=== PATIENT | female | born 1980 | race Hispanic/Latino ===

== ENCOUNTER 2019-04-10 09:09 | Outpatient (CLI) | payer OTHER | END 2019-04-10 09:10 | disposition home or self-care (01) | LOC: LABHHL 09:09 | PROVIDERS: ATTEND Surgery | DX: N62 Hypertrophy of breast (principal) | CPT/HCPCS: 88305 ==

== ENCOUNTER 2019-05-13 06:21 | Day surgery (SDC) | payer OTHER ==
[~2019-05-13 06:21] MED LIST: ANCEF/STERILE WATER 2 GM/20 ML IV NR
[2019-05-13] MEDS ORDERED: DILAUDID IV PRN (07:07)
[2019-05-13] MEDS ORDERED: SUBLIMAZE IV NR (07:07)
[2019-05-13] MEDS ORDERED: ZOFRAN IV PRN (07:07)
[2019-05-13] MEDS ORDERED: SUBLIMAZE IV PRN (07:07)
--- NOTE | 2019-05-13 07:13 | Anesthesia Day of Surgery ---
Anesthesia Day of Surgery - Day of Surgery Patient Examined: Yes Patient H&P Reviewed: Yes Patient is NPO: Yes
--- NOTE | 2019-05-13 07:16 | Anesthesia Consultation ---
Anesthesia Consult and Med Hx Date of service: 05/13/19 - Airway Anesthetic Teeth Evaluation: Good ROM Head & Neck: Adequate Mental/Hyoid Distance: Adequate Mallampati Class: Class II Intubation Access Assessment: Good - Pre-Operative Health Status ASA Pre-Surgery Classification: ASA1 Proposed Anesthetic Plan: General (MAC; GA if needed), MAC - Pulmonary Hx Smoking: No Hx Asthma: No Hx Sleep Apnea: No (MARY PRE SCREEN LOW RISK) - Cardiovascular System Hx Hypertension: No - Central Nervous System Hx Seizures: No Hx Psychiatric Problems: No - Endocrine Hx Renal Disease: No Hx Hypothyroidism: No Hx Hyperthyroidism: No - Hematic Hx Anemia: No Hx Sickle Cell Disease: No - Other Systems Hx Alcohol Use: No Hx Cancer: No
[2019-05-13] MEDS ORDERED: DECADRON ONE (07:26)
[2019-05-13] MEDS ORDERED: ZOFRAN ONE (07:26)
[2019-05-13] MEDS ORDERED: XYLOCAINE MPF 2% ONE (07:26)
[2019-05-13] MEDS ORDERED: TORADOL ONE (07:26)
[2019-05-13] MEDS ORDERED: DIPRIVAN 10 MG/ML IV ONE ×2 (07:27→07:51)
[2019-05-13] MEDS ORDERED: SUBLIMAZE ONE (07:27)
[2019-05-13] MEDS ORDERED: VERSED ONE ×2 (07:27→07:50)
[2019-05-13] MEDS ORDERED: XYLOCAINE 1% 20 mL ONE (07:43)
[2019-05-13] MEDS ORDERED: MARCAINE 0.25% INFILTRATI ONE ×3 (07:44→08:23)
[2019-05-13] MEDS ORDERED: KETALAR ONE (07:48)
[2019-05-13] MEDS ORDERED: TRANSDERM-SCOP TD NR (08:00)
[2019-05-13] MEDS ORDERED: LACTATED RINGERS 1,000 ML IV SCH (08:00)
[2019-05-13] MEDS ORDERED: VERSED IV NR (08:00)
[2019-05-13] MEDS ORDERED: WATER FOR IRRIG STERILE IR ONE (08:23)
[2019-05-13] MEDS ORDERED: XYLOCAINE 1%/ EPI 1:100,000 INFILTRATI ONE ×2 (08:23)
[2019-05-13] MEDS ORDERED: XYLOCAINE 1% 20 mL INFILTRATI NR (08:59)
--- NOTE | 2019-05-13 09:01 | Ultrasound Report ---
ULTRASOUND-GUIDED NEEDLE LOCALIZATION LEFT BREAST CLINICAL: Papilloma FINDINGS: Using ultrasound guidance and 1% lidocaine local anesthesia a 3.[address] wire [address] d from a lateral approach to localize a HydroMark clip. The wire tip was short of the clip and a seco nd 5 cm Burgess wire was placed from the same entry point. The second wire extended past the clip. Ne edles were removed and [address] in place. The patient tolerated the procedure well and there were no apparent complications. IMPRESSION: Uncomplicated ultrasound-guided needle wire localization left breast. Signer Name: Jhon Lo MD Signed: 05/13/2019 8:56 AM Workstation Name: [id number]
[2019-05-13] MEDS ORDERED: PHENYLEPHRINE/NS Syringe 1,000 MCG/10 ML IV ONE (09:11)
--- NOTE | 2019-05-13 10:29 | Mammography Report ---
SPECIMEN RADIOGRAPH LEFT BREAST FINDINGS: A single hookwire is identified within the specimen but no localizer clip is identified wit hin the specimen. According to Dr. Alfonso, she elected to leave the clip in place because of its p roximity to the skin at the nipple. Signer Name: Jhon Lo MD Signed: 05/13/2019 10:25 AM Workstation Name: [id number]
--- NOTE | 2019-05-13 10:45 | Operative Report ---
Operative Report Operative Report: Operative Report: Date of Service: May 13, 2019 Preoperative diagnosis: Left breast papilloma Postoperative diagnosis: Same Procedure: Left breast papilloma excisional biopsy Anesthesia: General Surgeon: Carrie Alfonso M.D. Oracle Database Analyst: Teresa Hagan M.D. Findings: Left breast papilloma excisional biopsy with wire present Complications: None Drains: None Estimated blood loss: Minimal Disposition: PACU in good condition Indication for operative procedure: This is a 38-year-old lady with recent abnormal left breast ultrasound. Patient with history of left nipple discharge and recent biopsy findings at the 12:00 SA findings of an intraductal papilloma. Recommendations are for excisional biopsy to rule out malignancy. Patient wished to proceed with the above procedure. The patient was procedure in detail: Radiology placed wire at location of clip placement. The patient was taken to the operating room and was laid supine. General anesthesia was administered. The left breast wire was identified. The left breast was prepped and draped in the normal sterile operative fashion. Timeout was performed. Ultrasound was used to aide in marking the area of incision, clip noted at the 12:00 SA within 2-3 mm from the skin and wire passing through area of concern inferiorly. A breast incision was made around the 3:00 position NAC was made with a 15 blade knife with dissection taken down to the subcutaneous tissues. The wires were removed laterally and one wire was noted to be superficial to the skin and was removed in its entirety. The medial flap was then raised and taken down posteriorly followed by raising of the lateral, superior and inferior flaps with dissection taken down posteriorly. The area of concern was then removed posteriorly with the aid of the bovie cautery and removal of wire within the specimen. The ultrasound was then used and clip was noted to be immediately inferior to the nipple within 2-3 mm from the skin. The surrounding ducts of concern were removed with the wire and it was thought that the clip migrated up into the duct immediately posterior to the nipple. The clip was not dissected out given concerns of devascularizing the nipple. The specimen was sent to pathology and radiology. The breast cavity area was examined and no suspicious masses or lesions were seen. Radiograph specimen with wire present. Hemostasis was then obtained using the Bovie cautery. The breast cavity was irrigated and suctioned. The deep breast tissues were approximated and closed using interrupted 3-0 Vicryl and skin brought together and closed using a running 4-0 Monocryl followed by skin affix. She was awaken from anesthesia without any complications and then sent to PACU in good condition.
--- NOTE | 2019-05-13 10:49 | Short Stay Summary ---
Short Stay Documentation Date of service: 05/13/19 - History H&P: obtained from office - Allergies and Medications Current Medications: Allergies No Known Allergies Allergy (Verified 04/12/15 10:19) Home Medications Medication Instructions Recorded Confirmed Last Taken Type HYDROcodone/APAP 5-325 [Lankin 1 each PO Q6HR PRN #25 tablet 05/13/19 Unknown Rx 5/325] Active Medications Cefazolin Sodium (Ancef/Sterile Water 2 Gm/20 Ml) 2 gm IV PREOP NR Stop: 05/13/19 23:59 Fentanyl (Sublimaze) 50 mcg IV Q5MIN PRN PRN Reason: Pain , Severe (7-10) Stop: 05/13/19 20:00 Hydromorphone HCl (Dilaudid) 0.5 mg IV Q10MIN PRN PRN Reason: Pain , Severe (7-10) Stop: 05/13/19 20:00 Lactated Ringer's (Lactated Ringers) 1,000 mls @ 125 mls/hr IV DIRECT TOY Lidocaine (Xylocaine 1% 20 Ml) 20 ml INFILTRATI ONCE NR Stop: 05/13/19 13:00 Midazolam HCl (Versed) 2 mg IV PREOP NR Stop: 05/13/19 23:59 Ondansetron HCl (Zofran) 4 mg IV ONCE PRN PRN Reason: Nausea And Vomiting Stop: 05/13/19 16:00 - Brief post op/procedure progress note Date of procedure: 05/13/19 Pre-op diagnosis: Left breast papilloma Post-op diagnosis: same Procedure: Left breast papilloma excisional biopsy Anesthesia: GETA Findings: Left breast papilloma excisional biopsy with removal of surrounding ducts Surgeon: JOURDAN MCDANIELS Reticle Printer: SANJANA ANGELA Estimated blood loss: minimal Pathology: list (left papilloma) Specimen disposition: to lab Condition: stable - Disposition Condition at discharge: Good Disposition: DC-01 TO HOME OR SELFCARE Short Stay Discharge Plan Activity: other (no heavy lifting) Diet: regular Wound: keep clean and dry (may shower in 48 hours; wear breast binder) Follow up with: DUSTIN FREITAS MD [Primary Care Provider] - 7 Days JOURDAN MCDANIELS MD [Staff Physician] - 7 Days Prescriptions: HYDROcodone/APAP 5-325 [Lankin 5/325] 1 each PO Q6HR PRN #25 tablet PRN Reason: Pain
[2019-05-13 11:01] VITALS: BP 119/55
--- NOTE | 2019-05-13 11:08 | Post Anesthesia Evaluation ---
- Post Anesthesia Evaluation Patient Participated: Yes Airway Patent: Yes Stable Respiratory Function: Yes Nausea/Vomiting: No Temp > 96.8F: Yes Pain Manageable: Yes Adequeate Hydration: Yes Anesthesia Complications: No
[2019-05-13] MEDS ORDERED: LACTATED RINGERS 1,000 ML ONE (13:46)
== END 2019-05-13 06:22 | disposition home or self-care (01) ==
LOC: OR 06:21
PROVIDERS: ATTEND Surgery
DX: D24.2 Benign neoplasm of left breast (principal); N60.12 Diffuse cystic mastopathy of left breast; N60.92 Unspecified benign mammary dysplasia of left breast; Z79.899 Other long term (current) drug therapy; Z90.49 Acquired absence of other specified parts of digestive tract; Z98.890 Other specified postprocedural states
CPT/HCPCS: 19125; 19285; 76098; 88307; J0690; J1100; J1885; J2250; J2370; J2405; J2704; J3010; J7120

== ENCOUNTER 2019-06-22 07:59 | Outpatient (CLI) | payer OTHER ==
--- NOTE | 2019-06-23 09:39 | Magnetic Resonance Report ---
BILATERAL BREAST MR WITHOUT AND WITH GADOLINIUM INDICATION: History of left subareolar papilloma and status post left subareolar surgical excision . At the time of surgery, a subareolar biopsy clip was left in place as a precautionary measu re for fear of devascularization of the nipple. COMPARISONS: 04/09/2019 and 03/10/2019 mammograms and 03/10/2019 left breast ultrasound. TECHNIQUE: Axial 1.0 mm T1 without, axial high-resolution 2.0 mm T2 and axial 1.0 mm dynamic vibrant high-resolution postcontrast T1 fat saturation sequences on a 1.5 Kat magnet. The examination was p erformed with an 8-channel dedicated [place] breast coil. Post-processing with CAD and subtraction was performed on an [employer] workstation. 14.0 cc of MultiHance was injected without incident for the c ontrast portion of the exam. Consent was obtained prior to the administration of the contrast. FINDINGS: RIGHT BREAST: Minimal background parenchymal enhancement. No mass or suspicious enhancement. A benign intraparenchymal lymph node at 12:00 approximately 3 cm from the nipple measures 3.9 x 2.8 x 2.6 mm. No suspicious right axillary or right internal mammary lymph nodes. LEFT BREAST: Minimal background parenchymal enhancement. Retroareolar postsurgical changes with mild postsurgical scar and retroareolar fluid. A subareolar HydroMark clip is identified adjacent to the f luid. No mass or suspicious enhancement. A benign intraparenchymal lymph node at 5:00 approximately 5 cm from the nipple measures 5.7 x 4.2 x 3.0 mm. A benign cyst at 5:00 approximately 4 cm from the ni pple measures 1.0 x 0.6 cm. IMPRESSION: 1. No mass or suspicious findings of either breast. 2. No evidence of residual papilloma. 3. Benign left subareolar postsurgical changes with a HydroMark clip. 4. A benign 1 cm left breast cyst at 5:00 4 cm from the nipple. BI-RADS Category 2 - Benign Finding Signer Name: Jhon Lo MD Signed: 06/23/2019 9:35 AM Workstation Name: [id number]
== END 2019-06-22 08:00 | disposition home or self-care (01) ==
LOC: SPVIMAG 07:59
PROVIDERS: ATTEND Surgery
DX: N60.02 Solitary cyst of left breast (principal)
CPT/HCPCS: A9577; C8908; 77049

== ENCOUNTER 2019-09-30 15:03 | Outpatient (CLI) | payer OTHER ==
--- NOTE | 2019-09-30 16:09 | Mammography Report ---
DIGITAL BILATERAL DIAGNOSTIC MAMMOGRAM WITH CAD, 09/30/2019 INDICATION: LT BREAST PAPILLOMA. Status post subareolar excision. TECHNIQUE: Digital left mammographic imaging was performed. This examination was interpreted with the benefit of Computer-aided Detection analysis. COMPARISON: 04/09/2019 Breast Density: There are scattered areas of fibroglandular density. FINDINGS: A subareolar biopsy clip is identified. No mass, architectural distortion or suspicious sanjuana cifications. Minimal benign subareolar postsurgical scar. IMPRESSION: No mammographic evidence of malignancy. Follow up recommendation: Routine BI-RADS Category 2: Benign. A "normal" or negative report should not discourage follow up or biopsy of a clinically significant f inding. A written summary of these findings will be mailed to the patient. The patient will be entered into a mammography reporting system which will generate a reminder letter for the patient's next appointmen t at the appropriate interval. According to the [employer], yearly mammograms are recommended starting at age 40 and continuing as long as a woman is in good health. Breast MRI is recommended for women with an mahesh roximately 20-25% or greater lifetime risk of breast cancer, including women with a strong family his tory of breast or ovarian cancer and women who have been treated for Hodgkin's disease. Signer Name: Jhon Lo MD Signed: 09/30/2019 4:04 PM Workstation Name: [id number]
== END 2019-09-30 15:04 | disposition home or self-care (01) ==
LOC: SPVWC 15:03
PROVIDERS: ATTEND Surgery
DX: R92.2 Inconclusive mammogram (principal); Z85.3 Personal history of malignant neoplasm of breast; Z98.890 Other specified postprocedural states; Z90.49 Acquired absence of other specified parts of digestive tract

== ENCOUNTER 2020-03-22 13:24 | Outpatient (CLI) | payer OTHER ==
--- NOTE | 2020-03-22 14:24 | Mammography Report ---
DIGITAL SCREENING MAMMOGRAM WITH CAD, 03/22/2020 INDICATION: Routine screening mammography. TECHNIQUE: Digital bilateral 2D mammography was obtained in the craniocaudal and mediolateral obliq ue projections. This examination was interpreted with the benefit of Computer-Aided Detection analysi s. COMPARISON: Prior mammogram 03/10/2019 and recent left mammogram 09/30/2019 FINDINGS: Breast Density: There are scattered areas of fibroglandular density. There is no evidence of dominant mass, suspicious calcifications or architectural distortion in the l eft breast. Postsurgical changes present in the left subareolar breast. Biopsy clip is present. This finding is stable compared to the most recent mammogram. There has been interval development of a mass in the 6:00 position of the right breast approximately 5 cm deep from the skin. This mass measures approximately 1.2 cm in diameter and will need further e valuation with ultrasound. The remainder of the right breast is unremarkable. IMPRESSION: New 1.2 cm mass in the right breast 6:00, 5 cm from the nipple. Follow up recommendation: Right breast ultrasound. Category 0: Incomplete. Needs additional imaging evaluation and/or prior mammograms for comparison. A "normal" or negative report should not discourage follow up or biopsy of a clinically significant f inding. A written summary of these findings will be mailed to the patient. The patient will be entered into a mammography reporting system which will generate a reminder letter for the patient's next appointmen t at the appropriate interval. The [employer] recommends yearly mammograms starting at age 40 and continuing as l margaret as a woman is in good health. Breast MRI is recommended for women with an approximate 20-25% or greater lifetime risk of breast cancer, including women with a strong family history of breast or ova ambreen cancer or who have been treated for Hodgkin's disease. Signer Name: Alysa Choe MD Signed: 03/22/2020 2:20 PM Workstation Name: [id number]
== END 2020-03-22 13:25 | disposition home or self-care (01) ==
LOC: SPVWC 13:24
PROVIDERS: ATTEND Surgery
DX: Z12.31 Encounter for screening mammogram for malignant neoplasm of breast (principal); N64.89 Other specified disorders of breast
CPT/HCPCS: 77067

== ENCOUNTER 2020-04-05 10:46 | Outpatient (CLI) | payer OTHER | END 2020-04-05 10:47 | disposition home or self-care (01) | LOC: SPVWC 10:46 | PROVIDERS: ATTEND Surgery | DX: N60.82 Other benign mammary dysplasias of left breast (principal) ==

== ENCOUNTER 2020-09-27 09:00 | Outpatient (CLI) | payer OTHER ==
--- NOTE | 2020-09-27 10:48 | Ultrasound Report ---
ULTRASOUND BREAST RIGHT LIMITED, 09/27/2020 CLINICAL INFORMATION / INDICATION: Six-month follow-up of the right breast. Follow-up of right breast cyst. TECHNIQUE: Targeted ultrasound evaluation was performed of the area of interest. COMPARISON: Screening mammogram, 03/22/2020. Right breast ultrasound, 04/05/2020 FINDINGS: Sonographic evaluation of the right breast at the 6:00 position periareolar again demonstrates a circ umscribed oval wider than tall predominantly cystic nodule measuring 1.2 x 0.2 cm. There is no associ ated vascularity. When accounting for differences in measurement, this has not significantly changed compared to the previous study and continues to have a benign appearance. There is no evidence of edith picious solid mass or shadowing. IMPRESSION: No sonographic evidence of malignancy. The circumscribed nodule at the 6:00 position cont inues to have the appearance of a mildly complicated cyst (a benign finding) Follow up recommendation: Routine yearly BI-RADS Category 2: Benign. A normal or "negative" report should not preclude biopsy or follow-up of a clinically suspicious find ing. Signer Name: Selma Dubon MD Signed: 09/27/2020 10:43 AM Workstation Name: [id number]
== END 2020-09-27 09:01 | disposition home or self-care (01) ==
LOC: SPVWC 09:00
PROVIDERS: ATTEND Surgery
DX: N63.15 Unspecified lump in the right breast, overlapping quadrants (principal)

== ENCOUNTER 2021-03-28 09:17 | Outpatient (CLI) | payer OTHER ==
--- NOTE | 2021-03-28 11:37 | Mammography Report ---
DIGITAL SCREENING MAMMOGRAM WITH TOMOSYNTHESIS WITH CAD, 03/28/2021 CLINICAL INFORMATION / INDICATION: Routine Screening Mammography. TECHNIQUE: Digital bilateral 2D and 3D mammography with tomosynthesis was obtained in the craniocaud al and mediolateral oblique projections. Computer-Aided Detection (CAD) analysis was used for interp retation of this study. COMPARISON: Prior mammograms 03/22/2020 and 03/10/2019 FINDINGS: Breast Density: There are scattered areas of fibroglandular density. No dominant mass, suspicious calcifications, or architectural distortion in either breast. There is stable nodularity in the right breast, previously shown to represent a benign mildly complic ated cyst, and stable benign postsurgical change in the left breast as well as a biopsy clip in the s ubareolar left breast. There has been no significant change compared with the prior examination. IMPRESSION: No mammographic evidence of malignancy. Follow up recommendation: Routine yearly BI-RADS Category 2: Benign. A "normal" or negative report should not discourage follow up or biopsy of a clinically significant f inding. A written summary of these findings will be mailed to the patient. The patient will be entered into a mammography reporting system which will generate a reminder letter for the patient's next appointmen t at the appropriate interval. The [employer] recommends yearly mammograms starting at age 40 and continuing as l margaret as a woman is in good health. Breast MRI is recommended for women with an approximate 20-25% or greater lifetime risk of breast cancer, including women with a strong family history of breast or ova ambreen cancer or who have been treated for Hodgkin's disease. Signer Name: Marianela La MD Signed: 03/28/2021 11:32 AM Workstation Name: [id number]
== END 2021-03-28 09:18 | disposition home or self-care (01) ==
LOC: SPVWC 09:17
PROVIDERS: ATTEND Surgery
DX: Z12.31 Encounter for screening mammogram for malignant neoplasm of breast (principal); N64.89 Other specified disorders of breast
CPT/HCPCS: 77063; 77067